=== PATIENT | female | born 1980 | race American Indian/Alaskan Native ===

== ENCOUNTER 2019-11-13 17:12 | Emergency (ER) | payer OTHER ==
--- NOTE | 2019-11-13 20:21 | Event Note ---
ED Screening Note Date of service: 11/13/19 Time: 20:17 ED Screening Note: 39 y o female presents to ED s/p neck pain, bilateral knee pain and headacehe This initial assessment/diagnostic orders/clinical plan/treatment(s) is/are subject to change based on patients health status, clinical progression and re- assessment by fellow clinical providers in the ED. Further treatment and workup at subsequent clinical providers discretion. Patient/guardian urged not to elope from the ED as their condition may be serious if not clinically assessed and managed. Initial orders include: xr cerv
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
[2019-11-13] MEDS ORDERED: traMADol 50 MG TAB PO ONE (22:06)
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
[2019-11-13 23:29] VITALS: BP 160/101
== END 2019-11-13 23:24 | disposition home or self-care (01) ==
LOC: ED 17:12
DX: S16.1XXA Strain of muscle, fascia and tendon at neck level, initial encounter (principal); S86.911A Strain of unspecified muscle(s) and tendon(s) at lower leg level, right leg, initial encounter; Z79.899 Other long term (current) drug therapy; V49.49XA Driver injured in collision with other motor vehicles in traffic accident, initial encounter; Y93.89 Activity, other specified; Y92.410 Unspecified street and highway as the place of occurrence of the external cause; Y99.8 Other external cause status
CPT/HCPCS: 72040; 99283